=== PATIENT | male | born 1995 | race Caucasian/White ===

== ENCOUNTER 2025-09-03 08:11 | Emergency (ER) | payer BC, MEDICAID, SELFPAY ==
--- NOTE | 2025-09-03 08:14 | ED_ITS ---
HPI - General Adult General Chief complaint: Ear Stated complaint: Ear Pain Time Seen by Provider: 09/03/25 08:14 Source: patient Mode of arrival: ambulatory Limitations: no limitations History of Present Illness HPI narrative: 29-year-old male patient presents to [facility] with complaints of right sided ear pain. Mother states that he tried to clean out his ears yesterday with a wet Kleenex and states he was complaining about some feeling of uncomfortable to the right ear yesterday and today staff told his mother that he needed help and that it was painful and he could hear. Denies any fevers body aches or chills. Denies any recent illness or cold symptoms. Related Data Home Medications ?Medication ?Instructions ?Recorded ?Confirmed ?Last Taken ?Type No Home Medications 05/02/21 09/03/25 U nknown History Allergies Allergy/AdvReac Type Severity Reaction Status Date / Time No Known Allergies Allergy Verified 09/03/25 08:32 Review of Systems Review of Systems: CONSTITUTIONAL: Denies fever, chills, or sweats. EYES: Denies visual changes, redness, or discharge. ENT: Denies rhinorrhea, congestion, sore throat, Positive right otalgia. CARDIOVASCULAR: Denies chest pain, palpitations, or edema. RESPIRATORY: Denies cough or dyspnea. GASTROINTESTINAL: Denies abdominal pain, nausea, vomiting, or diarrhea. GENITOURINARY: Denies dysuria or hematuria. SKIN: Denies rash or itching. MUSCULOSKELETAL: Denies back pain, joint pain, or myalgia. NEUROLOGIC: Denies headache, numbness, or weakness. PSYCHIATRIC: Denies anxiety or depression. PMFSH Past Medical History Medical History Sensory integration disorder Impulse control disorder Autism Social History Social History Smoking status: Never smoker Alcohol intake: never Substance use: never Substance use type: does not use Living arrangements: with family Occupation/Education: unemployed Gender identity (if verbalized by the patient): Male Comments At the time of my signature I agree with nursing past medical history, surgical, social, and family history. There is no relevant family history pertinent to the presenting complaint. Exam Narrative: GENERAL: Well-appearing, well-nourished, and in no acute distress. HEAD: Normocephalic, atraumatic. EYES: PERRLA and EOMI. ENT: Nares clear, no rhinorrhea or epistaxis. Mucous membranes moist. posterior pharynx with no erythema, tonsillar enlargement, exudates or lesions present. Unable to evaluate bilateral TMs due to cerumen impaction to bilateral ears. NECK: Supple. No lymphadenopathy CHEST: Clear to auscultation. No respiratory distress. HEART: Regular rate and rhythm. No murmur heard. Normal peripheral pulses. ABDOMEN: Soft, nontender, nondistended, normal active bowel sounds. EXTREMITIES: Normal range of motion. No edema. SKIN: Warm, dry, no rash. NEURO: No focal deficits. Alert and oriented x3. Course Course Level of Care: Express Care Visit Vital Signs Vital signs: Vital Signs Temperature 36.9 C 09/03/25 08:20 Pulse Rate 79 09/03/25 08:20 Respiratory Rate 16 09/03/25 08:20 Blood Pressure 137/84 09/03/25 08:20 Pulse Oximetry 100 09/03/25 08:20 Temperature 36.9 C 09/03/25 08:20 Pulse Rate 79 09/03/25 08:20 Respiratory Rate 16 09/03/25 08:20 Blood Pressure 137/84 09/03/25 08:20 Pulse Oximetry 100 09/03/25 08:20 Vital signs reviewed. The patient has been informed that they may have pre-hypertension or Hypertension based on a BP reading in the department. I recommend that the patient call the primary care provider listed on their discharge instructions or a physician of their choice this week to arrange follow up for further evaluation of possible pre-hypertension or Hypertension Procedures Ear Wax Removal Both Ears: Ear Wax Removal Date: 09/03/25 Ear Wax Removal Time: 09:09 Cerumenolytic Used: 5-10% Sodium Bicarb solution Results: Re-examined: cerumen removed completely TM Examination: TM(s) intact, normal appearance Ear Canal Exam: atraumatic Patient Tolerated Procedure: well Complications: no problems Technique: ear canal irrigated and ear canal curetted Additional Comments: The patient had cerumen removed from the L/R ear canal with warm water and peroxide irrigation and a loop in order to visualize the TM. The TM has no perforations or erythema post procedure. There were no complications. MDM MDM Narrative Medical decision making narrative: Plan care patient is to irrigate out bilateral ears that are full of wax to see if this improves his hearing. Differential Diagnosis Differential Diagnosis: Differential diagnosis: Otitis media, otitis externa, perforated TM, infection of the outer ear, foreign body or cerumen impaction, ruptured TM, ac [place] mastoiditis, ligament otitis externa, dehydration, pneumonia, sepsis, dental or intraoral infection, TMJ dysfunction Critical Care Time Critical Care Time Critical Care Time: No Discharge Plan Discharge Clinical Impression: Bilateral impacted cerumen Patient Disposition: Home Condition: Stable Instructions: Antibiotic Form, Carbamide Peroxide (Into the ear) Additional Instructions: Wax softening eardrops may be obtained without a prescription. Gently clean the outer part of the ear with a cotton swab. Do NOT place the cotton swab or anything inside your ear canal. This increases the risk of damaging your eardrum. Contact your primary care provider or go to the emergency department if: Have a fever Have trouble hearing or ringing in the ear You feel dizzy You have discharge or blood coming out of her ear Your ear pain does not go away or gets worse Patient Language: Japanese Prescriptions: No Action No Home Medications Follow-up/Referrals: Jeanna Colorado MD [Primary Care Provider, Family Practice] Time of Disposition: 09:08
[2025-09-03 08:20] VITALS: BP 137/84; PULSE 79; RESP 16; TEMP 36.9; O2SAT 100
== END 2025-09-03 09:09 | disposition home or self-care (01) ==
PROVIDERS: Emergency Provider Nurse Practitioner Family; PCP Family Medicine
DX: H61.23 Impacted cerumen, bilateral (principal); F84.0 Autistic disorder
CPT/HCPCS: 69210; 99212; G0463